=== PATIENT | female | born 1990 | race Caucasian/White ===

== ENCOUNTER 2021-07-17 21:20 | Emergency (ER) | payer MEDICAID, OTHER ==
[~2021-07-17] VITALS: Ht 162.5 cm; Wt 49.4 kg
[2021-07-17 22:09] LABS: BILIRUBIN,URINE NEGATIVE (NEGATIVE); CLARITY,URINE CLEAR; COLOR,URINE YELLOW; GLUCOSE, URINE (UA) NEGATIVE (NEGATIVE); KETONES,URINE 3+ (NEGATIVE); LEUKOCYTE ESTERASE ,URINE NEGATIVE (NEGATIVE); NITRITE,URINE NEGATIVE (NEGATIVE); PROTEIN,URINE 1+ (NEGATIVE)
[2021-07-17] MEDS ORDERED: ACETAMINOPHEN 325 MG TABLET PO STA (22:14)
[2021-07-17] MEDS ORDERED: NS IV 1000 ML 1,000 ML IV SCH (22:15)
[2021-07-17 22:18] LABS: BACTERIA,URINE MODERATE /HPF; RBC,URINE 0-2 /HPF
--- NOTE | 2021-07-17 22:22 | ED GI ---
General Chief Complaint: Abdominal/GI Problems Stated Complaint: ABD PAIN/VOMITING Nursing Triage Note: pt to room by wheelchair. pt states she has had middle stomach pain and vomiting that started yesterday. pt states she had a bowel movement yesterday. pt states she is also "tingling all over" except for in her stomach (EVARISTO SHAH) History of Present Illness Date Seen by Provider: Jul 17, 2021 Time Seen by Provider: 21:50 Initial Comments 30-year-old female presents for a 2-day history of epigastric and suprapubic abdominal pain with vomiting. She has vomited after any liquid or solid food intake. She was seen in the emergency department at [facility] She reports having lab work done. She presented to [facility] emergency department today and after waiting multiple hours she left and came here. Previous abdominal surgeries: hysterectomy and cholecystectomy. Timing/Duration: 2-3 Days Severity/Quality: Moderate Location: Generalized Abdomen Radiation: No Radiation Associated Symptoms: Fever/Chills, Nausea/Vomiting, Weakness (EVARISTO SHAH) Allergies and Home Medications Allergies Coded Allergies: codeine (Verified Allergy, Unknown, 07/17/21) Patient Home Medication List Home Medication List Reviewed: Yes (EVARISTO SHAH) Review of Systems Review of Systems Constitutional: see HPI, chills, fever, weakness EENTM: No Symptoms Reported, See HPI Respiratory: No Symptoms Reported, See HPI Cardiovascular: No Symptoms Reported, See HPI Gastrointestinal: See HPI, Abdominal Pain; Denies Diarrhea; Nausea, Poor Appetite, Poor Fluid Intake, Vomiting Genitourinary: No Symptoms Reported, See HPI (EVARISTO SHAH) All Other Systems Reviewed Negative Unless Noted: Yes (EVARISTO SHAH) Past Rnoggsy-Pukxnx-Dcbmig Hx Family Medical History Reviewed Nursing Family Hx (EVARISTO SHAH) Physical Exam Vital Signs Vital Signs - First Documented 07/17/21 21:51 Temp 38.4 Pulse 56 Resp 12 B/P (MAP) 138/78 (98) Pulse Ox 100 (BIJAL,HUGO K DO) Vital Signs Capillary Refill : (EVARISTO SHAH) Height/Weight/BMI Height: '" Weight: lbs. oz. kg; 18.00 BMI Method: General Appearance: WD/WN, mild distress HEENT: PERRL/EOMI, TMs normal, pharynx normal, other (oral mucosa pink and dr y.) Neck: non-tender, full range of motion, supple, normal inspection Respiratory: chest non-tender, lungs clear, normal breath sounds Cardiovascular: normal peripheral pulses, regular rate, rhythm Gastrointestinal: normal bowel sounds, soft; No distended, No guarding, No rebound; tenderness; No mass Extremities: normal range of motion, non-tender, normal inspection Neurologic/Psychiatric: no motor/sensory deficits, alert, normal mood/affect, oriented x 3 Skin: normal color, warm/dry (PABLO,EVARISTO CLAIMS COUNSEL) Progress/Results/Core Measures Results/Orders Lab Results Laboratory Tests Test 07/17/21 22:00 07/17/21 22:43 07/17/21 22:59 Range/Units Urine Color YELLOW Urine Clarity CLEAR Urine pH 6.0 5-9 Urine Specific [place] >=1.030 1.016-1.022 Urine Protein 1+ H NEGATIVE Urine Glucose (UA) NEGATIVE NEGATIVE Urine Ketones 3+ H NEGATIVE Urine Nitrite NEGATIVE NEGATIVE Urine Bilirubin NEGATIVE NEGATIVE Urine Urobilinogen 0.2 < = 1.0 MG/DL Urine Leukocyte Esterase NEGATIVE NEGATIVE Urine RBC (Auto) 1+ H NEGATIVE Urine RBC 0-2 /HPF Urine WBC NONE /HPF Urine Squamous Epithelial Cells 10-25 H /HPF Urine Crystals NONE /LPF Urine Bacteria MODERATE H /HPF Urine Casts NONE /LPF Urine Mucus NEGATIVE /LPF Urine Culture Indicated NO Urine Opiates Screen NEGATIVE NEGATIVE Urine Oxycodone Screen NEGATIVE NEGATIVE Urine Methadone Screen NEGATIVE NEGATIVE Urine Propoxyphene Screen NEGATIVE NEGATIVE Urine Barbiturates Screen NEGATIVE NEGATIVE Ur Tricyclic Antidepressants Screen NEGATIVE NEGATIVE Urine Phencyclidine Screen NEGATIVE NEGATIVE Urine Amphetamines Screen NEGATIVE NEGATIVE Urine Methamphetamines Screen NEGATIVE NEGATIVE Urine Benzodiazepines Screen NEGATIVE NEGATIVE Urine Cocaine Screen NEGATIVE NEGATIVE Urine Cannabinoids Screen POSITIVE H NEGATIVE White Blood Count 9.2 4.3-11.0 10^3/uL Red Blood Count 5.38 H 3.80-5.11 10^6/uL Hemoglobin 17.0 H 11.5-16.0 g/dL Hematocrit 49 35-52 % Mean Corpuscular Volume 90 80-99 fL Mean Corpuscular Hemoglobin 32 25-34 pg Mean Corpuscular Hemoglobin Concent 35 32-36 g/dL Red Cell Distribution Width 12.6 10.0-14.5 % Platelet Count 194 130-400 10^3/uL Mean Platelet Volume 11.9 9.0-12.2 fL Immature Granulocyte % (Auto) 0 % Neutrophils (%) (Auto) 77 H 42-75 % Lymphocytes (%) (Auto) 14 12-44 % Monocytes (%) (Auto) 8 0-12 % Eosinophils (%) (Auto) 0 0-10 % Basophils (%) (Auto) 0 0-10 % Neutrophils # (Auto) 7.1 1.8-7.8 10^3/uL Lymphocytes # (Auto) 1.3 1.0-4.0 10^3/uL Monocytes # (Auto) 0.8 0.0-1.0 10^3/uL Eosinophils # (Auto) 0.0 0.0-0.3 10^3/uL Basophils # (Auto) 0.0 0.0-0.1 10^3/uL Immature Granulocyte # (Auto) 0.0 0.0-0.1 10^3/uL Sodium Level 138 135-145 MMOL/L Potassium Level 5.6 H 3.6-5.0 MMOL/L Chloride Level 104 98-107 MMOL/L Carbon Dioxide Level 12 L 21-32 MMOL/L Anion Gap 22 H 5-14 MMOL/L Blood Urea Nitrogen 10 7-18 MG/DL Creatinine 0.91 0.60-1.30 MG/DL Estimat Glomerular Filtration Rate 86 BUN/Creatinine Ratio 11 Glucose Level 92 70-105 MG/DL Calcium Level 10.3 H 8.5-10.1 MG/DL Corrected Calcium 8.5-10.1 MG/DL Total Bilirubin 0.8 0.1-1.0 MG/DL Aspartate Amino Transf (AST/SGOT) 101 H 5-34 U/L Alanine Aminotransferase (ALT/SGPT) 159 H 0-55 U/L Alkaline Phosphatase 93 40-136 U/L C-Reactive Protein High Sensitivity 0.26 0.00-0.50 MG/DL Total Protein 8.8 H 6.4-8.2 GM/DL Albumin 5.0 H 3.2-4.5 GM/DL Amylase Level 37 25-125 U/L Lipase 39 8-78 U/L Serum Alcohol < 10 <10 MG/DL Prothrombin Time 14.1 12.2-14.7 SEC INR Comment 1.1 0.8-1.4 Activated Partial Thromboplast Time 33 24-35 SEC (HUGO GONZALEZ DO) My Orders Orders - HUGO GONZALEZ DO Promethazine Injection (Phenergan Injec (07/18/21 00:00) Diphenhydramine Injection (Benadryl Inje (07/18/21 00:00) (HUGO GONZALEZ DO) Medications Given in ED Current Medications Medications Dose Ordered Sig/Ivy Route Start Time Stop Time Status Last Admin Dose Admin Diphenhydramine HCl 25 mg ONCE ONCE IVP 07/18/21 00:00 07/18/21 00:01 DC 07/17/21 23:59 25 MG Promethazine HCl 12.5 mg ONCE ONCE IVP 07/18/21 00:00 07/18/21 00:01 DC 07/18/21 00:00 12.5 MG (HUGO GONZALEZ DO) Vital Signs/I&O 07/17/21 21:51 Temp 38.4 Pulse 56 Resp 12 B/P (MAP) 138/78 (98) Pulse Ox 100 (HUGO GONZALEZ DO) Blood Pressure Mean: 98 Progress Progress Note : Time: 21:50 Progress Note Patient seen and evaluated, will obtain labs, Zofran for nausea and vomiting, Tylenol for fever and normal saline for dehydration. 2230 no vomiting since admission. Awaiting lab results. 2300 temp down to 98.9. No vomiting, continued generalized abdominal pain. Will get CT abd/pelvis. Report to Dr. Gonzalez, she will assume care and review CT. (EVARISTO SHAH) Progress Note : Progress Note 0015--PT FEELING BETTER AFTER PHENERGAN + BENADRYL AND WOULD LIKE TO GO HOME. CT SCAN DOES NOT SHOW ANY SIGNIFICANT ABNORMALITIES OTHER THAN MILD MESENTERIC ADENITIS. (HUGO GONZALEZ DO) Diagnostic Imaging Comments CT ABDOMEN/PELVIS--MILD MESENTERIC ADENITIS, OTHERWISE NO ACUTE PROCESS. PER [facility] VIA FAX AT 0015 Reviewed: Reviewed by Me (HUGO GONZALEZ DO) Departure Impression Primary Impression: Abdominal pain Qualified Codes: R10.84 - Generalized abdominal pain Additional Impressions: Nausea and vomiting Qualified Codes: R11.14 - Bilious vomiting Gastroenteritis Disposition: HOME, SELF-CARE Condition: Improved Departure-Patient Inst. Referrals: NO,LOCAL PHYSICIAN (PCP/Family) Primary Care Physician Patient Instructions: Severe Abdominal Pain, Adult (DC), Nausea and Vomiting, Adult (DC) Add. Discharge Instructions: Clear liquid diet for the next 6 to 8 hours. Then bland diet for diarrhea in next 24 hours. Over the counter Pepcid 10 mg, one tablet every 12 hours. Use the Zofran 1 tablet every 6-8 hours as needed for nausea or vomiting. Follow-up with your primary care provider if symptoms are not improving or worsen. Return to the emergency department for new, urgent healthcare needs. All discharge instructions reviewed with patient and/or family. Voiced understanding. EVARISTO SHAH Jul 17, 2021 22:22 HUGO GONZALEZ DO Jul 18, 2021 00:22
[2021-07-17 22:36] LABS: AMPHETAMINE SCREEN, URINE NEGATIVE (NEGATIVE); BARBITURATE SCREEN URINE NEGATIVE (NEGATIVE); BENZODIAZEPINES SCREEN URINE NEGATIVE (NEGATIVE); CANNABINOID SCREEN, URINE POSITIVE (NEGATIVE); COCAINE SCREEN URINE NEGATIVE (NEGATIVE); METHADONE STAT NEGATIVE (NEGATIVE); METHAMPHETAMINE SCREEN URINE S NEGATIVE (NEGATIVE); OPIATE SCREEN URINE NEGATIVE (NEGATIVE); OXYCODONE STAT NEGATIVE (NEGATIVE); PROPOXYPHENE STAT NEGATIVE (NEGATIVE); TRICYCLIC ANTIDEPRESSANTS SCRE NEGATIVE (NEGATIVE)
[2021-07-17 22:48] LABS: BASOPHILS % (AUTO) 0 % (0-10); EOSINOPHILS % (AUTO) 0 % (0-10); HEMATOCRIT 49 % (35-52); LYMPHOCYTES # (AUTO) 1.3 10^3/uL (1.0-4.0); LYMPHOCYTES % (AUTO) 14 % (12-44); MEAN CORPUSCULAR HEMOGLOBIN 32 pg (25-34); MEAN CORPUSCULAR HGB CONC 35 g/dL (32-36); MEAN CORPUSCULAR VOLUME 90 fL (80-99); MEAN PLATELET VOLUME 11.9 fL (9.0-12.2); MONOCYTES # (AUTO) 0.8 10^3/uL (0.0-1.0); MONOCYTES % (AUTO) 8 % (0-12); NEUTROPHILS # (AUTO) 7.1 10^3/uL (1.8-7.8); NEUTROPHILS % (AUTO) 77 % (42-75); PLATELET COUNT 194 10^3/uL (130-400); WHITE BLOOD COUNT 9.2 10^3/uL (4.3-11.0)
[2021-07-17] MEDS ORDERED: ONDANSETRON 4 MG/2 ML (SDV) Z0FRAN IVP STA (22:53)
[2021-07-17 22:59] LABS: CHLORIDE 104 MMOL/L (98-107); POTASSIUM 5.6 MMOL/L (3.6-5.0); SODIUM 138 MMOL/L (135-145)
[2021-07-17 23:00] LABS: AMYLASE 37 U/L (25-125); CALCIUM 10.3 MG/DL (8.5-10.1)
[2021-07-17 23:02] LABS: GLUCOSE 92 MG/DL (70-105); TOTAL PROTEIN 8.8 GM/DL (6.4-8.2)
[2021-07-17 23:03] LABS: BILIRUBIN,TOTAL 0.8 MG/DL (0.1-1.0); CARBON DIOXIDE 12 MMOL/L (21-32)
[2021-07-17 23:05] LABS: ALKALINE PHOSPHATASE 93 U/L (40-136); CREATININE SERUM 0.91 MG/DL (0.60-1.30); GFR ESTIMATED 86
[2021-07-17 23:06] LABS: BUN/CREATININE RATIO 11
[2021-07-17 23:08] LABS: ALANINE AMINOTRANSFERASE 159 U/L (0-55)
[2021-07-17 23:09] LABS: LIPASE 39 U/L (8-78)
[2021-07-17] MEDS ORDERED: RX-ONDANSETRON 4 MG ODT (ZOFRAN) PPK #4 PO STA (23:14)
[2021-07-17] MEDS ORDERED: PANTOPRAZOLE 40 MG (PROTONIX) VIAL IV STA (23:14)
[2021-07-17 23:43] LABS: INR 1.1 (0.8-1.4); PROTHROMBIN TIME PATIENT 14.1 SEC (12.2-14.7)
[2021-07-18] MEDS ORDERED: diphenhydrAMINE 50 MG/ML INJ (BENADRYL) IVP ONE
[2021-07-18] MEDS ORDERED: PROMETHAZINE INJ 25 MG/ML (PHENERGAN) AMP IVP ONE
[2021-07-18 00:20] VITALS: BP 133/79
--- NOTE | 2021-07-18 06:21 | Diagnostic Imaging Report ---
PROCEDURE: CT abdomen and pelvis without contrast. TECHNIQUE: Multiple contiguous axial images were obtained through the abdomen and pelvis without the use of intravenous contrast. Auto Exposure Controls were utilized during the CT exam to meet ALARA standards for radiation dose reduction. INDICATION: Abdominal pain and vomiting for 2 days. The lung bases are clear. The liver is unremarkable. Gallbladder surgically absent. There is no biliary duct dilatation. The pancreas and spleen are unremarkable. No adrenal mass is identified. No renal calculi or hydronephrosis is seen. Aorta is nonaneurysmal. Bowel loops are nondilated. There is no free fluid in the abdomen or pelvis. Bladder is decompressed. Uterus surgically absent. No definite inflammatory changes are seen. Bony structures are nonacute. IMPRESSION: Essentially unremarkable noncontrast CT of the abdomen and pelvis. No acute feature is detected. Dictated by: Dictated on workstation # [id number]
== END 2021-07-18 00:27 | disposition home or self-care (01) ==
LOC: ER 21:23
DX: K52.9 Noninfective gastroenteritis and colitis, unspecified (principal); Z90.49 Acquired absence of other specified parts of digestive tract; Z90.710 Acquired absence of both cervix and uterus
CPT/HCPCS: 74176; 80053; 80306; 81000; 82150; 83690; 85025; 85610; 85730; 86141; 99284; G0480; 36415; 80320